=== PATIENT | male | born 1955 | race Caucasian/White ===

== ENCOUNTER 2016-12-25 11:09 | Inpatient (IN) | payer MEDICAID ==
[~2016-12-25] VITALS: Ht 182.9 cm; Wt 85.7 kg
[~2016-12-25 11:09] MED LIST: ACID1GRA2 PO; CLON-365 PO; FLUT1BLS INH; GABA600T2 PO; IPRA3AMP NPPB; METH10TA PO; METH40TA3 PO; NICO1PAT5 TD; PRED10TA14 PO; SULF1TAB24 PO; TIOT18CA INH; ciprofloxacin IV
[2016-12-25] MEDS ORDERED: SODIUM CHLORIDE 0.9% 1,000 ML IV ONE (11:44)
[2016-12-25] MEDS ORDERED: SODIUM CHLORIDE 0.9% 1,000ML IVBOLUS ONE (12:00)
[2016-12-25] MEDS ORDERED: CEFEPIME 2 GM in DEXTROSE 5% 100 ML IV ONE (12:00)
[2016-12-25] MEDS ORDERED: ACETAMINOPHEN 500 MG TABLET PO ONE (12:00)
[2016-12-25] MEDS ORDERED: SODIUM CHLORIDE FLUSH 10ML SYR IVF ONE (12:00)
[2016-12-25] MEDS ORDERED: VANCOMYCIN PER PHARMACY MC ONE (12:00)
[2016-12-25] MEDS ORDERED: VANCOMYCIN 1,600 MG in SODIUM CHLORIDE 0.9% 250 ML IV ONE (12:00)
[2016-12-25] MEDS ORDERED: ACETAMINOPHEN 500 MG TABLET ONE (12:05)
[2016-12-25 12:26] LABS: HEMOGLOBIN 12.7 g/dL (13.7-18.0)
[2016-12-25 12:36] LABS: BLOOD UREA NITROGEN 12 mg/dL (7-18)
[2016-12-25 12:39] LABS: ASPARTATE AMINO TRANSFERASE 10 U/L (15-37)
[2016-12-25] MEDS ORDERED: ENALAPRILAT 1.25 MG/ML, 2ML IVPush PRN (14:00)
[2016-12-25] MEDS ORDERED: POLYETHYLENE GLYCOL 17 GM PACKET PO PRN (14:00)
[2016-12-25] MEDS ORDERED: VANCOMYCIN PER PHARMACY MC PRN (14:00)
[2016-12-25] MEDS: CEFEPIME 2 GM in DEXTROSE 5% 100 ML IV SCH (14:00)
[2016-12-25] MEDS ORDERED: GUAIFENESIN/DM 200-20MG, 10ML UDC PO PRN (14:00)
[2016-12-25] MEDS ORDERED: DOCUSATE 100 MG CAPSULE PO PRN (14:00)
[2016-12-25] MEDS ORDERED: ALBUTEROL/IPRATROPIUM 2.5MG/0.5MG, 3 ML NPPB PRN (14:00)
[2016-12-25] MEDS ORDERED: ENOXAPARIN 40 MG/0.4 ML ONE (14:14)
[2016-12-25] MEDS ORDERED: methylPREDNISolone SOD SUCC 125 MG/2 ML ONE (14:14)
[2016-12-25] MEDS: methylPREDNISolone SOD SUCC 125 MG/2 ML IVPush SCH ×2 (14:19→22:33)
[2016-12-25] MEDS: ENOXAPARIN 40 MG/0.4 ML SQ SCH (14:19)
[2016-12-25 14:21] LABS: ABG COLLECTION SITE RIGHT RADIAL
[2016-12-25 14:22] LABS: COLLATERAL CIRCULATION TESTING NORMAL
[2016-12-25] MEDS: SODIUM CHLORIDE 0.9% 1,000 ML IV SCH (14:24)
[2016-12-25 15:36] VITALS: BP 121/56
[2016-12-25 16:00] VITALS: BP 121/56
[2016-12-25] MEDS ORDERED: PHARMACOKINETIC CONSULTATION MC ONE (16:30)
[2016-12-25] MEDS ORDERED: PHARMACOKINETIC MONITORING MC PRN (16:30)
[2016-12-25] MEDS: GABAPENTIN 300 MG CAPSULE PO SCH ×2 (16:39→21:38)
[2016-12-25 19:01] VITALS: BP 100/60
[2016-12-25] MEDS: ALBUTEROL/IPRATROPIUM 2.5MG/0.5MG, 3 ML NPPB SCH (20:10)
[2016-12-25 21:31] VITALS: BP 107/59
[2016-12-25] MEDS: METHADONE 40 MG TABLET.SOL PO SCH (21:37)
[2016-12-25] MEDS: ACETAMINOPHEN 325 MG TABLET PO PRN (21:38)
[2016-12-26 00:49] VITALS: BP 114/60
[2016-12-26] MEDS: CEFEPIME 2 GM in DEXTROSE 5% 100 ML IV SCH ×2 (00:54→15:31)
[2016-12-26] MEDS: SODIUM CHLORIDE 0.9% 1,000 ML IV SCH ×2 (04:31→20:23)
[2016-12-26] MEDS: ACETAMINOPHEN 325 MG TABLET PO PRN ×2 (05:38→20:24)
[2016-12-26 06:26] LABS: ASPARTATE AMINO TRANSFERASE 7 U/L (15-37); BLOOD UREA NITROGEN 14 mg/dL (7-18)
[2016-12-26] MEDS: ALBUTEROL/IPRATROPIUM 2.5MG/0.5MG, 3 ML NPPB SCH ×4 (06:51→20:00)
[2016-12-26 07:56] VITALS: BP 115/53
[2016-12-26] MEDS ORDERED: NICOTINE 21 MG/24 HR PATCH.TD24 TD SCH (09:00)
[2016-12-26] MEDS: GABAPENTIN 300 MG CAPSULE PO SCH ×3 (09:14→20:24)
[2016-12-26] MEDS: methylPREDNISolone SOD SUCC 125 MG/2 ML IVPush SCH ×3 (09:16→23:00)
[2016-12-26] MEDS ORDERED: VANCOMYCIN 1,600 MG in SODIUM CHLORIDE 0.9% 250 ML IV SCH (12:00)
[2016-12-26] MEDS: FLUTICASONE/VILANTEROL 200-25MCG/INH INH SCH (12:32)
[2016-12-26] MEDS: NICOTINE 14MG/24 HR PATCH.TD24 TD SCH (12:32)
[2016-12-26 12:59] VITALS: BP 111/54
[2016-12-26] MEDS: ENOXAPARIN 40 MG/0.4 ML SQ SCH (15:31)
[2016-12-26 20:13] VITALS: BP 124/54
[2016-12-26] MEDS: METHADONE 40 MG TABLET.SOL PO SCH (20:23)
[2016-12-26] MEDS ORDERED: METHADONE 40 MG TABLET.SOL PO SCH (21:00)
[2016-12-27] MEDS: ACETAMINOPHEN 325 MG TABLET PO PRN ×4 (01:50→20:38)
[2016-12-27 01:51] VITALS: BP 134/69
[2016-12-27] MEDS: CEFEPIME 2 GM in DEXTROSE 5% 100 ML IV SCH ×2 (03:54→15:31)
[2016-12-27] MEDS: VANCOMYCIN 1,600 MG in SODIUM CHLORIDE 0.9% 250 ML IV SCH (05:54)
[2016-12-27 05:56] LABS: HEMOGLOBIN 11.8 g/dL (13.7-18.0)
[2016-12-27 06:23] LABS: ASPARTATE AMINO TRANSFERASE 7 U/L (15-37); BLOOD UREA NITROGEN 25 mg/dL (7-18)
[2016-12-27] MEDS: ALBUTEROL/IPRATROPIUM 2.5MG/0.5MG, 3 ML NPPB SCH ×4 (06:30→20:00)
[2016-12-27 07:56] VITALS: BP 133/67
[2016-12-27] MEDS: FLUTICASONE/VILANTEROL 200-25MCG/INH INH SCH (08:27)
[2016-12-27] MEDS: methylPREDNISolone SOD SUCC 125 MG/2 ML IVPush SCH ×2 (08:27→15:31)
[2016-12-27] MEDS: GABAPENTIN 300 MG CAPSULE PO SCH ×3 (08:27→20:38)
[2016-12-27] MEDS: NICOTINE 14MG/24 HR PATCH.TD24 TD SCH (12:00)
[2016-12-27] MEDS: SODIUM CHLORIDE 0.9% 1,000 ML IV SCH (12:30)
[2016-12-27 12:59] VITALS: BP 118/48
[2016-12-27] MEDS: ENOXAPARIN 40 MG/0.4 ML SQ SCH (13:37)
[2016-12-27 19:32] VITALS: BP 130/70
[2016-12-27] MEDS: TRAZODONE 50MG TABLET PO PRN (20:38)
[2016-12-27] MEDS: METHADONE 40 MG TABLET.SOL PO SCH (20:38)
[2016-12-28] MEDS: methylPREDNISolone SOD SUCC 125 MG/2 ML IVPush SCH ×2 (00:07→08:15)
[2016-12-28] MEDS: VANCOMYCIN 1,600 MG in SODIUM CHLORIDE 0.9% 250 ML IV SCH ×2 (00:07→17:55)
[2016-12-28 02:33] VITALS: BP 151/78
[2016-12-28] MEDS: SODIUM CHLORIDE 0.9% 1,000 ML IV SCH ×2 (02:46→15:40)
[2016-12-28] MEDS: CEFEPIME 2 GM in DEXTROSE 5% 100 ML IV SCH (03:41)
[2016-12-28] MEDS: ALBUTEROL/IPRATROPIUM 2.5MG/0.5MG, 3 ML NPPB SCH ×4 (07:00→19:35)
[2016-12-28 08:11] VITALS: BP 148/80
[2016-12-28] MEDS: FLUTICASONE/VILANTEROL 200-25MCG/INH INH SCH (08:15)
[2016-12-28] MEDS: GABAPENTIN 300 MG CAPSULE PO SCH ×3 (08:15→21:20)
[2016-12-28] MEDS: NICOTINE 14MG/24 HR PATCH.TD24 TD SCH (08:15)
[2016-12-28 09:03] LABS: ASPARTATE AMINO TRANSFERASE 15 U/L (15-37); BLOOD UREA NITROGEN 27 mg/dL (7-18)
[2016-12-28 09:45] LABS: HEMOGLOBIN 13.1 g/dL (13.7-18.0)
[2016-12-28] MEDS: CEFEPIME 2 GM in SODIUM CHLORIDE 0.9% 100 ML IV SCH ×2 (10:46→23:41)
[2016-12-28] MEDS: IBUPROFEN 200 MG TABLET PO PRN (10:47)
[2016-12-28 13:13] VITALS: BP 124/65
[2016-12-28] MEDS ORDERED: KETOROLAC 30 MG/1 ML IVPush PRN (13:30)
[2016-12-28] MEDS: ENOXAPARIN 40 MG/0.4 ML SQ SCH (14:00)
[2016-12-28 18:41] VITALS: BP 121/69
[2016-12-28] MEDS: METHADONE 40 MG TABLET.SOL PO SCH (21:20)
[2016-12-29] MEDS: TRAZODONE 50MG TABLET PO PRN (00:47)
[2016-12-29 01:11] VITALS: BP 128/66
[2016-12-29 05:49] LABS: BLOOD UREA NITROGEN 32 mg/dL (7-18)
[2016-12-29 06:09] LABS: HEMOGLOBIN 11.5 g/dL (13.7-18.0)
[2016-12-29 06:54] VITALS: BP 126/70
[2016-12-29] MEDS: ALBUTEROL/IPRATROPIUM 2.5MG/0.5MG, 3 ML NPPB SCH ×3 (07:43→14:27)
[2016-12-29] MEDS: GABAPENTIN 300 MG CAPSULE PO SCH ×2 (08:34→17:16)
[2016-12-29] MEDS: IBUPROFEN 200 MG TABLET PO PRN (08:34)
[2016-12-29] MEDS: FLUTICASONE/VILANTEROL 200-25MCG/INH INH SCH (08:35)
[2016-12-29] MEDS: CEFEPIME 2 GM in SODIUM CHLORIDE 0.9% 100 ML IV SCH (11:19)
[2016-12-29] MEDS ORDERED: VANCOMYCIN 1,500 MG in SODIUM CHLORIDE 0.9% 250 ML IV SCH (12:00)
[2016-12-29 13:33] VITALS: BP 118/65
[2016-12-29] MEDS: ENOXAPARIN 40 MG/0.4 ML SQ SCH (14:00)
[2016-12-29] MEDS: NICOTINE 14MG/24 HR PATCH.TD24 TD SCH (14:23)
[2016-12-29] MEDS ORDERED: LINE600T37 PO (14:39)
[2016-12-29] MEDS ORDERED: PRED10TA PO (14:39)
== END 2016-12-29 19:37 | DRG 871 ==
LOC: ED 12:12 → EDIP 12:49 → 4WST 15:45
PROVIDERS: ADMIT Internal Medicine; ATTEND Internal Medicine
PROC: 0T9B70Z Drainage of Bladder with Drainage Device, Via Natural or Artificial Opening (ICD-10-PCS; principal; 2016-12-27)
DX: A41.9 Sepsis, unspecified organism (principal); J96.21 Acute and chronic respiratory failure with hypoxia; J15.212 Pneumonia due to Methicillin resistant Staphylococcus aureus; I50.32 Chronic diastolic (congestive) heart failure; J44.0 Chronic obstructive pulmonary disease with (acute) lower respiratory infection; J44.1 Chronic obstructive pulmonary disease with (acute) exacerbation; F11.20 Opioid dependence, uncomplicated; F41.9 Anxiety disorder, unspecified; G89.29 Other chronic pain; Z80.3 Family history of malignant neoplasm of breast; Z80.0 Family history of malignant neoplasm of digestive organs; Z87.891 Personal history of nicotine dependence; M54.9 Dorsalgia, unspecified; R65.20 Severe sepsis without septic shock; D75.82 Heparin induced thrombocytopenia (HIT); R13.10 Dysphagia, unspecified
CPT/HCPCS: 36415; 36600; 71010; 74230; 80048; 80053; 80202; 81003; 82803; 83605; 84145; 85025; 87040; 87070; 87077; 87186; 87205; 93005; 94640; 96365; 96366; 96368; J1650; J1885; J3370; J7620; J2930; J7030; J7050; J7512

== ENCOUNTER 2017-06-04 07:55 | Emergency (ER) | payer MEDICAID ==
[~2017-06-04] VITALS: Ht 182.9 cm; Wt 70.9 kg
[~2017-06-04 07:55] MED LIST changes: -ACID1GRA2 PO; +ACID1GRA3 PO; +LINE600T37 PO; +NICO1PAT16 TD; -NICO1PAT5 TD; +PRED10TA PO
[2017-06-04 07:59] VITALS: BP 117/84
[2017-06-04] MEDS ORDERED: SODIUM CHLORIDE 0.9% 1,000 ML IV ONE (08:19)
[2017-06-04] MEDS ORDERED: SODIUM CHLORIDE FLUSH 10ML SYR IVF ONE (08:30)
[2017-06-04] MEDS ORDERED: ONDANSETRON 2MG/ML, 2ML IVPush ONE (08:30)
[2017-06-04 08:38] LABS: HEMATOCRIT 41.7 % (39.2-51.8); HEMOGLOBIN 13.5 g/dL (13.7-18.0); WHITE BLOOD COUNT 6.5 x10^3/uL (3.4-10)
[2017-06-04 08:46] LABS: ASPARTATE AMINO TRANSFERASE 17 U/L (15-37); BLOOD UREA NITROGEN 10 mg/dL (7-18)
[2017-06-04] MEDS ORDERED: MAGNESIUM CITRATE 300ML ORAL SOL PO ONE (09:30)
[2017-06-04] MEDS ORDERED: MAGNESIUM CITRATE 300ML ORAL SOL ONE (09:32)
== END 2017-06-04 09:41 | disposition home or self-care (01) ==
LOC: ED 08:29
DX: K59.00 Constipation, unspecified (principal)
CPT/HCPCS: 36415; 74020; 80053; 83690; 85025; 99285

== ENCOUNTER 2017-06-29 11:22 | Inpatient (IN) | payer MEDICAID ==
[~2017-06-29] VITALS: Ht 180.3 cm; Wt 68.7 kg
[~2017-06-29 11:22] MED LIST changes: +NICO-487 TD; -NICO1PAT16 TD
[2017-06-29] MEDS ORDERED: LORazepam 2 MG/ML, 1ML ONE ×2 (11:38→15:12)
[2017-06-29] MEDS ORDERED: methylPREDNISolone SOD SUCC 125 MG/2 ML ONE (11:38)
[2017-06-29] MEDS ORDERED: LORazepam 2 MG/ML, 1ML IVPush ONE ×2 (12:00→15:30)
[2017-06-29] MEDS ORDERED: ASPIRIN 81 MG TABLET CHEW PO ONE (12:00)
[2017-06-29] MEDS ORDERED: methylPREDNISolone SOD SUCC 125 MG/2 ML IVP ONE (12:00)
[2017-06-29 12:26] LABS: HEMATOCRIT 40.6 % (39.2-51.8); HEMOGLOBIN 13.7 g/dL (13.7-18.0); WHITE BLOOD COUNT 14.7 x10^3/uL (3.4-10)
[2017-06-29 12:39] LABS: BLOOD UREA NITROGEN 17 mg/dL (7-18)
[2017-06-29 12:40] LABS: ASPARTATE AMINO TRANSFERASE 25 U/L (15-37)
[2017-06-29 12:46] LABS: IS PT STATUS REG ER OR PRE ER? YES
[2017-06-29] MEDS ORDERED: AZITHROMYCIN 500 MG in SODIUM CHLORIDE 0.9% 250 ML IV ONE (13:00)
[2017-06-29] MEDS ORDERED: CEFTRIAXONE PMX 1GM/50ML 50 ML IVPB ONE (13:00)
[2017-06-29] MEDS ORDERED: SODIUM CHLORIDE 0.9% 1,000ML IVBOLUS ONE ×2 (13:30→14:00)
[2017-06-29] MEDS ORDERED: CEFTRIAXONE PMX 1GM/50ML 50 ML ONE (13:47)
[2017-06-29] MEDS ORDERED: ASPIRIN 81 MG TABLET CHEW ONE (14:55)
[2017-06-29] MEDS ORDERED: GABA300S PO (15:00)
[2017-06-29] MEDS ORDERED: QUET50TA5 PO (15:02)
[2017-06-29] MEDS ORDERED: BUDE10.2 INH (15:02)
[2017-06-29] MEDS ORDERED: SERT25TA PO (15:03)
[2017-06-29] MEDS ORDERED: OMNIPAQUE 350 MG/ML, 100ML BOTTLE ONE (17:54)
[2017-06-29] MEDS ORDERED: ONDANSETRON ODT 4 MG PO PRN (19:00)
[2017-06-29] MEDS ORDERED: ACETAMINOPHEN 325 MG TABLET PO PRN (19:00)
[2017-06-29] MEDS ORDERED: IPRATROPIUM 0.5 MG/2.5 ML INHA NPPB PRN (20:00)
[2017-06-29] MEDS ORDERED: ALBUTEROL/IPRATROPIUM 2.5MG/0.5MG, 3 ML NPPB PRN (20:00)
[2017-06-29 20:12] VITALS: BP 121/67
[2017-06-29] MEDS: QUETIAPINE 25MG TABLET PO SCH ×2 (21:00→21:51)
[2017-06-29] MEDS: FLUTICASONE/VILANTEROL 200-25MCG/INH INH SCH (21:00)
[2017-06-29] MEDS: SODIUM CHLORIDE 0.9% 1,000 ML IV SCH (21:21)
[2017-06-29] MEDS: TEMAZEPAM 15 MG CAPSULE PO PRN (21:22)
[2017-06-29] MEDS: LORazepam 1MG TABLET PO PRN (21:22)
[2017-06-29] MEDS: ENOXAPARIN 40 MG/0.4 ML SQ SCH (21:22)
[2017-06-29] MEDS: GABAPENTIN 400 MG CAPSULE PO SCH (21:24)
[2017-06-30] MEDS: CEFTRIAXONE PMX 1GM/50ML 50 ML IV SCH ×2 (00:56→13:08)
[2017-06-30 02:00] VITALS: BP 101/49
[2017-06-30] MEDS: LORazepam 1MG TABLET PO PRN ×3 (04:29→17:12)
[2017-06-30 05:55] LABS: HEMATOCRIT 35.7 % (39.2-51.8); HEMOGLOBIN 12.1 g/dL (13.7-18.0); WHITE BLOOD COUNT 11.2 x10^3/uL (3.4-10)
[2017-06-30] MEDS ORDERED: METHADONE 40 MG TABLET.SOL ONE (06:19)
[2017-06-30 06:28] LABS: BLOOD UREA NITROGEN 20 mg/dL (7-18)
[2017-06-30] MEDS: METHADONE 40 MG TABLET.SOL PO SCH ×2 (06:30→09:00)
[2017-06-30] MEDS: SODIUM CHLORIDE 0.9% 1,000 ML IV SCH ×2 (06:33→16:09)
[2017-06-30] MEDS: ALBUTEROL/IPRATROPIUM 2.5MG/0.5MG, 3 ML NPPB SCH ×4 (07:15→20:00)
[2017-06-30 07:57] VITALS: BP 126/66
[2017-06-30] MEDS ORDERED: methylPREDNISolone SOD SUCC 40 MG/ML IV SCH (09:00)
[2017-06-30] MEDS ORDERED: METHADONE 40 MG TABLET.SOL PO SCH (09:00)
[2017-06-30] MEDS: FLUTICASONE/VILANTEROL 200-25MCG/INH INH SCH ×2 (09:00→22:16)
[2017-06-30] MEDS ORDERED: METHADONE 10 MG TABLET PO ONE (09:30)
[2017-06-30] MEDS: GABAPENTIN 400 MG CAPSULE PO SCH ×3 (09:34→21:42)
[2017-06-30 12:00] VITALS: BP 124/64
[2017-06-30] MEDS: AZITHROMYCIN 500 MG in SODIUM CHLORIDE 0.9% 250 ML IV SCH (13:40)
[2017-06-30 19:45] VITALS: BP 130/65
[2017-06-30] MEDS: GUAIFENESIN ER 600 MG TABLET PO SCH (21:42)
[2017-06-30] MEDS: QUETIAPINE 25MG TABLET PO SCH (21:42)
[2017-06-30] MEDS: ENOXAPARIN 40 MG/0.4 ML SQ SCH (21:42)
[2017-07-01] MEDS: SODIUM CHLORIDE 0.9% 1,000 ML IV SCH (00:16)
[2017-07-01] MEDS: CEFTRIAXONE PMX 1GM/50ML 50 ML IV SCH ×2 (01:04→12:37)
[2017-07-01 02:21] VITALS: BP 114/67
[2017-07-01] MEDS: LORazepam 1MG TABLET PO PRN ×4 (04:33→22:17)
[2017-07-01 06:02] LABS: HEMATOCRIT 37.2 % (39.2-51.8); HEMOGLOBIN 12.3 g/dL (13.7-18.0)
[2017-07-01 06:22] LABS: BLOOD UREA NITROGEN 17 mg/dL (7-18)
[2017-07-01] MEDS: METHADONE 40 MG TABLET.SOL PO SCH (06:24)
[2017-07-01 06:33] LABS: IS PT STATUS REG ER OR PRE ER? NO
[2017-07-01] MEDS: ALBUTEROL/IPRATROPIUM 2.5MG/0.5MG, 3 ML NPPB SCH ×4 (07:10→19:35)
[2017-07-01 07:57] VITALS: BP 142/78
[2017-07-01] MEDS: FLUTICASONE/VILANTEROL 200-25MCG/INH INH SCH ×2 (09:15→21:22)
[2017-07-01] MEDS: GUAIFENESIN ER 600 MG TABLET PO SCH ×2 (09:16→21:22)
[2017-07-01] MEDS: GABAPENTIN 400 MG CAPSULE PO SCH ×3 (09:16→21:23)
[2017-07-01 10:10] LABS: IS PT STATUS REG ER OR PRE ER? NO
[2017-07-01] MEDS: AZITHROMYCIN 500 MG in SODIUM CHLORIDE 0.9% 250 ML IV SCH (13:11)
[2017-07-01 13:14] VITALS: BP 123/67
[2017-07-01 20:00] VITALS: BP 122/70
[2017-07-01] MEDS: ENOXAPARIN 40 MG/0.4 ML SQ SCH (21:23)
[2017-07-01] MEDS: QUETIAPINE 25MG TABLET PO SCH (21:23)
[2017-07-02] MEDS: CEFTRIAXONE PMX 1GM/50ML 50 ML IV SCH ×2 (00:53→12:48)
[2017-07-02 02:00] VITALS: BP 118/74
[2017-07-02] MEDS: TEMAZEPAM 15 MG CAPSULE PO PRN ×2 (02:09→21:53)
[2017-07-02] MEDS: LORazepam 1MG TABLET PO PRN ×3 (04:42→17:49)
[2017-07-02] MEDS: METHADONE 40 MG TABLET.SOL PO SCH (06:01)
[2017-07-02] MEDS: ALBUTEROL/IPRATROPIUM 2.5MG/0.5MG, 3 ML NPPB SCH ×4 (07:02→19:57)
[2017-07-02 07:43] LABS: HEMATOCRIT 36.9 % (39.2-51.8); HEMOGLOBIN 12.2 g/dL (13.7-18.0); WHITE BLOOD COUNT 5.4 x10^3/uL (3.4-10)
[2017-07-02 07:44] LABS: BLOOD UREA NITROGEN 13 mg/dL (7-18)
[2017-07-02 09:19] VITALS: BP 99/60
[2017-07-02] MEDS: GABAPENTIN 400 MG CAPSULE PO SCH ×3 (09:56→20:26)
[2017-07-02] MEDS: FLUTICASONE/VILANTEROL 200-25MCG/INH INH SCH ×2 (09:57→20:25)
[2017-07-02] MEDS: GUAIFENESIN ER 600 MG TABLET PO SCH ×2 (09:57→20:26)
[2017-07-02] MEDS: AZITHROMYCIN 500 MG in SODIUM CHLORIDE 0.9% 250 ML IV SCH (12:48)
[2017-07-02 12:58] VITALS: BP 103/61
[2017-07-02] MEDS: PIPERACILLIN/TAZO/PMX 3.375GM 50 ML IV SCH (20:25)
[2017-07-02] MEDS: QUETIAPINE 25MG TABLET PO SCH (20:26)
[2017-07-02] MEDS: ENOXAPARIN 40 MG/0.4 ML SQ SCH (20:26)
[2017-07-02 20:31] VITALS: BP 115/72
[2017-07-03 02:00] VITALS: BP 133/76
[2017-07-03] MEDS: PIPERACILLIN/TAZO/PMX 3.375GM 50 ML IV SCH ×4 (02:29→22:29)
[2017-07-03] MEDS: LORazepam 1MG TABLET PO PRN ×4 (02:29→22:29)
[2017-07-03] MEDS: METHADONE 40 MG TABLET.SOL PO SCH (05:39)
[2017-07-03] MEDS: ALBUTEROL/IPRATROPIUM 2.5MG/0.5MG, 3 ML NPPB SCH ×4 (06:47→19:30)
[2017-07-03 09:30] VITALS: BP 117/62
[2017-07-03] MEDS: GABAPENTIN 400 MG CAPSULE PO SCH ×3 (10:00→20:25)
[2017-07-03] MEDS: FLUTICASONE/VILANTEROL 200-25MCG/INH INH SCH (10:00)
[2017-07-03] MEDS: GUAIFENESIN ER 600 MG TABLET PO SCH ×2 (10:00→20:26)
[2017-07-03 12:01] VITALS: BP 106/55
[2017-07-03] MEDS ORDERED: POLYETHYLENE GLYCOL 17 GM PACKET PO PRN (14:30)
[2017-07-03] MEDS: SENNA/DOCUSATE TABLET PO SCH ×2 (15:14→20:25)
[2017-07-03] MEDS ORDERED: LORazepam 1MG TABLET ONE (16:31)
[2017-07-03] MEDS ORDERED: LORazepam 1MG TABLET PO PRN (19:00)
[2017-07-03] MEDS: QUETIAPINE 25MG TABLET PO SCH (20:26)
[2017-07-03] MEDS: ENOXAPARIN 40 MG/0.4 ML SQ SCH (20:26)
[2017-07-03] MEDS: TEMAZEPAM 15 MG CAPSULE PO PRN (20:26)
[2017-07-03 20:59] VITALS: BP 103/55
[2017-07-04 01:40] VITALS: BP 104/59
[2017-07-04] MEDS: LORazepam 1MG TABLET PO PRN ×4 (02:52→21:47)
[2017-07-04] MEDS: PIPERACILLIN/TAZO/PMX 3.375GM 50 ML IV SCH ×4 (04:40→23:11)
[2017-07-04] MEDS: ALBUTEROL/IPRATROPIUM 2.5MG/0.5MG, 3 ML NPPB SCH ×4 (06:40→19:26)
[2017-07-04 07:05] VITALS: BP 122/75
[2017-07-04] MEDS: GABAPENTIN 400 MG CAPSULE PO SCH ×3 (08:23→20:01)
[2017-07-04] MEDS: SENNA/DOCUSATE TABLET PO SCH ×2 (08:23→20:02)
[2017-07-04] MEDS: GUAIFENESIN ER 600 MG TABLET PO SCH ×2 (08:23→20:01)
[2017-07-04] MEDS: METHADONE 40 MG TABLET.SOL PO SCH (08:23)
[2017-07-04] MEDS: FLUTICASONE/VILANTEROL 200-25MCG/INH INH SCH (09:00)
[2017-07-04 14:13] VITALS: BP 120/77
[2017-07-04 18:42] VITALS: BP 138/84
[2017-07-04] MEDS: QUETIAPINE 25MG TABLET PO SCH (20:01)
[2017-07-04] MEDS: ENOXAPARIN 40 MG/0.4 ML SQ SCH (20:01)
[2017-07-04] MEDS: TEMAZEPAM 15 MG CAPSULE PO PRN (23:16)
[2017-07-05 01:46] VITALS: BP 105/63
[2017-07-05] MEDS: LORazepam 1MG TABLET PO PRN ×3 (04:43→17:32)
[2017-07-05] MEDS: PIPERACILLIN/TAZO/PMX 3.375GM 50 ML IV SCH ×4 (04:44→22:54)
[2017-07-05 06:00] LABS: HEMATOCRIT 38.2 % (39.2-51.8); HEMOGLOBIN 12.6 g/dL (13.7-18.0); WHITE BLOOD COUNT 7.5 x10^3/uL (3.4-10)
[2017-07-05 06:03] LABS: BLOOD UREA NITROGEN 19 mg/dL (7-18)
[2017-07-05 06:53] VITALS: BP 123/82
[2017-07-05] MEDS: ALBUTEROL/IPRATROPIUM 2.5MG/0.5MG, 3 ML NPPB SCH ×4 (08:05→19:50)
[2017-07-05] MEDS: METHADONE 40 MG TABLET.SOL PO SCH (08:47)
[2017-07-05] MEDS: GABAPENTIN 400 MG CAPSULE PO SCH ×3 (08:48→20:08)
[2017-07-05] MEDS: SENNA/DOCUSATE TABLET PO SCH ×2 (08:48→20:08)
[2017-07-05] MEDS: GUAIFENESIN ER 600 MG TABLET PO SCH ×2 (08:48→20:08)
[2017-07-05] MEDS: FLUTICASONE/VILANTEROL 200-25MCG/INH INH SCH (08:51)
[2017-07-05 12:17] VITALS: BP 150/67
[2017-07-05 20:00] VITALS: BP 127/67
[2017-07-05] MEDS: ENOXAPARIN 40 MG/0.4 ML SQ SCH (20:09)
[2017-07-05] MEDS: QUETIAPINE 25MG TABLET PO SCH (20:09)
[2017-07-05] MEDS: TEMAZEPAM 15 MG CAPSULE PO PRN (22:55)
[2017-07-06 01:41] VITALS: BP 92/61
[2017-07-06] MEDS: LORazepam 1MG TABLET PO PRN ×3 (02:49→16:57)
[2017-07-06] MEDS: PIPERACILLIN/TAZO/PMX 3.375GM 50 ML IV SCH ×2 (05:08→13:13)
[2017-07-06] MEDS: ALBUTEROL/IPRATROPIUM 2.5MG/0.5MG, 3 ML NPPB SCH ×3 (07:00→14:08)
[2017-07-06] MEDS: GUAIFENESIN ER 600 MG TABLET PO SCH (07:52)
[2017-07-06] MEDS: GABAPENTIN 400 MG CAPSULE PO SCH (07:52)
[2017-07-06] MEDS: SENNA/DOCUSATE TABLET PO SCH (07:52)
[2017-07-06] MEDS: FLUTICASONE/VILANTEROL 200-25MCG/INH INH SCH (07:52)
[2017-07-06] MEDS: METHADONE 40 MG TABLET.SOL PO SCH (08:00)
[2017-07-06 08:21] VITALS: BP 115/69
[2017-07-06] MEDS ORDERED: LEVO750T26 PO (14:22)
[2017-07-06] MEDS ORDERED: GUAI600T31 PO (14:22)
[2017-07-06] MEDS ORDERED: PRED5TAB PO (14:22)
[2017-07-06] MEDS ORDERED: FLU VACC QS2017-18 (36MOS+) UP/PF 0.5 ML IM-VACC ONE (17:00)
== END 2017-07-06 17:09 | DRG 871 ==
LOC: ED 11:30 → EDIP 16:41 → 4WST 18:42
PROVIDERS: ADMIT Family Medicine; ATTEND Family Medicine
DX: A41.9 Sepsis, unspecified organism (principal); E43 Unspecified severe protein-calorie malnutrition; J96.21 Acute and chronic respiratory failure with hypoxia; J15.1 Pneumonia due to Pseudomonas; I50.32 Chronic diastolic (congestive) heart failure; J44.0 Chronic obstructive pulmonary disease with (acute) lower respiratory infection; R13.10 Dysphagia, unspecified; Z99.81 Dependence on supplemental oxygen; F11.20 Opioid dependence, uncomplicated; M48.54XA Collapsed vertebra, not elsewhere classified, thoracic region, initial encounter for fracture; F33.9 Major depressive disorder, recurrent, unspecified; J44.1 Chronic obstructive pulmonary disease with (acute) exacerbation; T17.990A Other foreign object in respiratory tract, part unspecified in causing asphyxiation, initial encounter; F17.210 Nicotine dependence, cigarettes, uncomplicated; F41.1 Generalized anxiety disorder; R65.20 Severe sepsis without septic shock; Z79.82 Long term (current) use of aspirin; Z80.3 Family history of malignant neoplasm of breast; Z86.14 Personal history of Methicillin resistant Staphylococcus aureus infection; Z87.01 Personal history of pneumonia (recurrent)
CPT/HCPCS: 36415; 71020; 71275; 80048; 80053; 83605; 83735; 84145; 84484; 85025; 85379; 87040; 87070; 87077; 87186; 87205; 93005; 94640; 96374; 96375; J0456; J0696; J1650; J2543; J7620; Q9967; J2060; J2920; J2930; J7030; J7050; J7512

== ENCOUNTER 2017-10-11 03:58 | Inpatient (IN) | payer MEDICAID ==
[2017-10-11] VITALS (8 sets, daily range): BP systolic 109–148; BP diastolic 68–80
[~2017-10-11] VITALS: Ht 167.6 cm; Wt 83.2 kg
[~2017-10-11 03:58] MED LIST changes: +BUDE10.2 INH; +GABA300S PO; +GUAI600T31 PO; +LEVO750T26 PO; +PRED5TAB PO; +QUET50TA5 PO; +SERT25TA PO
[2017-10-11] MEDS ORDERED: ALBUTEROL/IPRATROPIUM 2.5MG/0.5MG, 3 ML ONE ×4 (04:18→17:57)
[2017-10-11] MEDS ORDERED: ALBUTEROL/IPRATROPIUM 2.5MG/0.5MG, 3 ML NPPB ONE (04:30)
[2017-10-11] MEDS ORDERED: ALBUTEROL SULFATE 2.5 MG/3 ML NPPB ONE ×2 (04:30→05:30)
[2017-10-11] MEDS ORDERED: MORPHINE SULFATE 4 MG/ML, 1ML IVPush ONE (04:30)
[2017-10-11] MEDS ORDERED: morphine SULFATE 10 MG/ML, 1ML ONE (05:17)
[2017-10-11] MEDS ORDERED: methylPREDNISolone SOD SUCC 125 MG/2 ML ONE (05:17)
[2017-10-11] MEDS ORDERED: SODIUM CHLORIDE 0.9% 1,000ML IVBOLUS ONE (05:30)
[2017-10-11] MEDS ORDERED: methylPREDNISolone SOD SUCC 125 MG/2 ML IVP ONE (05:30)
[2017-10-11] MEDS ORDERED: SODIUM CHLORIDE FLUSH 10ML SYR IVF ONE (05:30)
[2017-10-11 05:44] LABS: BASOPHILS # (AUTO) 0.02 x10^3/uL (0-0.1); BASOPHILS % (AUTO) 0 % (0-1); EOSINOPHILS # (AUTO) 0.21 x10^3/uL (0-0.4); EOSINOPHILS % (AUTO) 2 % (1-7); LYMPHOCYTES # (AUTO) 1.58 x10^3/uL (1-3.4); LYMPHOCYTES % (AUTO) 12 % (22-44); MD NO; MEAN CORPUSCULAR HEMOGLOBIN 29.7 pg (27.5-34.5); MEAN CORPUSCULAR VOLUME 90.1 fL (81-97); MEAN PLATELET VOLUME 6.5 fL (7.4-10.4); MONOCYTES # (AUTO) 0.82 x10^3/uL (0.2-0.8); MONOCYTES % (AUTO) 6 % (2-9); NEUTROPHILS # (AUTO) 10.29 x10^3/uL (1.8-6.8); NEUTROPHILS % (AUTO) 80 % (42-75); PLATELET COUNT 195 x10^3/uL (130-400); RED BLOOD COUNT 4.54 x10^6/uL (4.38-5.82); RED CELL DISTRIBUTION WIDTH 15.3 % (9.4-14.8)
[2017-10-11 05:54] LABS: INTERNATIONAL NORMALIZED RATIO 0.96 (0.93-1.1)
[2017-10-11 05:57] LABS: ALBUMIN 3.2 g/dL (3.4-5.0); ANION GAP 8 mmol/L (5-15); CALCIUM 8.3 mg/dL (8.5-10.1); CHLORIDE 102 mmol/L (98-107)
[2017-10-11 06:03] LABS: ALANINE AMINOTRANSFERASE 19 U/L (12-78); ALKALINE PHOSPHATASE 70 U/L (45-117); BILIRUBIN,TOTAL 0.5 mg/dL (0.2-1.0); CREATINE KINASE, TOTAL 46 U/L (39-308); CREATININE 0.84 mg/dL (0.7-1.3); TOTAL PROTEIN 6.9 g/dL (6.4-8.2); TROPONIN I < 0.015 ng/mL (0.000-0.045)
[2017-10-11] MEDS ORDERED: MORPHINE SULFATE 4 MG/ML, 1ML IVPush PRN (07:00)
[2017-10-11] MEDS ORDERED: METH-356 PO (07:17)
[2017-10-11] MEDS ORDERED: ALPR-475 PO (07:18)
[2017-10-11] MEDS ORDERED: PRED10TA14 PO (07:20)
[2017-10-11] MEDS ORDERED: FENTANYL PF 100 MCG/2ML ONE ×5 (07:32→17:56)
[2017-10-11] MEDS: FENTANYL PF 100 MCG/2ML IVPush PRN ×3 (07:34→09:12)
[2017-10-11] MEDS ORDERED: LORazepam 2 MG/ML, 1ML ONE (09:22)
[2017-10-11] MEDS ORDERED: ONDANSETRON 2MG/ML, 2ML IVPush PRN ×2 (09:30→18:00)
[2017-10-11] MEDS ORDERED: ACETAMINOPHEN 325 MG TABLET PO PRN ×2 (09:30→18:00)
[2017-10-11] MEDS: GUAIFENESIN ER 600 MG TABLET PO SCH ×2 (09:30→21:00)
[2017-10-11] MEDS ORDERED: LORazepam 2 MG/ML, 1ML IVPush ONE (09:30)
[2017-10-11] MEDS: POLYETHYLENE GLYCOL 17 GM PACKET PO SCH (09:30)
[2017-10-11] MEDS ORDERED: hydrALAzine 20 MG/ML, 1ML IVPush PRN (09:30)
[2017-10-11 09:57] LABS: FREE T4 (FREE THYROXINE) 1.11 ng/dL (0.76-1.46); THYROID STIMULATING HORMONE 9.18 mIU/L (0.358-3.740)
[2017-10-11] MEDS: morphine SULFATE 10 MG/ML, 1ML IVPush PRN ×2 (11:19→22:00)
[2017-10-11] MEDS ORDERED: ALBUTEROL/IPRATROPIUM 2.5MG/0.5MG, 3 ML NEB ONE (11:45)
[2017-10-11] MEDS: PANTOPRAZOLE 40 MG IV IVPush SCH (11:50)
[2017-10-11] MEDS: LEVOFLOXACIN/PMX 500MG/100ML 100 ML IV SCH (11:50)
[2017-10-11] MEDS: SODIUM CHLORIDE 0.9% 1,000 ML IV SCH (11:50)
[2017-10-11] MEDS: methylPREDNISolone SOD SUCC 125 MG/2 ML IVPush SCH ×2 (11:50→18:00)
[2017-10-11] MEDS: NICOTINE 14MG/24 HR PATCH.TD24 TD SCH (12:02)
[2017-10-11] MEDS ORDERED: ALBUTEROL/IPRATROPIUM 2.5MG/0.5MG, 3 ML NPPB PRN (12:30)
[2017-10-11] MEDS: METHADONE 40 MG TABLET.SOL PO SCH (13:28)
[2017-10-11] MEDS: ALBUTEROL/IPRATROPIUM 2.5MG/0.5MG, 3 ML NPPB SCH ×2 (15:00→19:23)
[2017-10-11] MEDS ORDERED: KETAMINE 10 MG/ML, 20ML ONE (17:11)
[2017-10-11] MEDS ORDERED: SUCCINYLCHOLINE 20 MG/ML, 10ML ONE (17:13)
[2017-10-11] MEDS ORDERED: PROPOFOL 10 MG/ML, 20ML ONE (17:13)
[2017-10-11] MEDS ORDERED: CEFAZOLIN 1,000 MG ONE (17:13)
[2017-10-11] MEDS: FENTANYL PF 100 MCG/2ML IV PRN ×2 (17:58→18:05)
[2017-10-11] MEDS ORDERED: OXYcodone 5 MG/5 ML ORAL.SOL UDC PO PRN (18:00)
[2017-10-11] MEDS ORDERED: HYDROcodone/APAP 7.5-325MG/15ML UDC PO PRN (18:00)
[2017-10-11] MEDS ORDERED: HYDROmorphone 1 MG/ML, 1ML IV PRN (18:00)
[2017-10-11] MEDS ORDERED: FUROSEMIDE 20 MG/2 ML ONE (18:14)
[2017-10-11] MEDS ORDERED: HALOPERIDOL 5 MG/ML ONE ×2 (18:19→18:29)
[2017-10-11] MEDS ORDERED: EPINEPHRINE 1 MG/ML, 1ML ONE (18:24)
[2017-10-11] MEDS ORDERED: BUPIVACAINE/PF 0.25% ONE (18:24)
[2017-10-11] MEDS ORDERED: FUROSEMIDE 20 MG/2 ML IV ONE (18:30)
[2017-10-11 19:05] LABS: O2 FLOW 10 L/min
[2017-10-11] MEDS ORDERED: HALOPERIDOL 5 MG/ML IV ONE (19:30)
[2017-10-12] VITALS (7 sets, daily range): BP systolic 123–155; BP diastolic 68–96
[2017-10-12] MEDS: morphine SULFATE 10 MG/ML, 1ML IVPush PRN ×7 (00:40→21:44)
[2017-10-12] MEDS: methylPREDNISolone SOD SUCC 125 MG/2 ML IVPush SCH ×4 (00:52→18:14)
[2017-10-12] MEDS: ALBUTEROL/IPRATROPIUM 2.5MG/0.5MG, 3 ML NPPB SCH ×4 (03:00→21:05)
[2017-10-12] MEDS: CEFAZOLIN PMX 1GM/50ML 50 ML IV SCH ×3 (03:50→20:05)
[2017-10-12 05:23] LABS: BASOPHILS # (AUTO) 0.02 x10^3/uL (0-0.1); BASOPHILS % (AUTO) 0 % (0-1); EOSINOPHILS % (AUTO) 0 % (1-7); LYMPHOCYTES # (AUTO) 0.62 x10^3/uL (1-3.4); LYMPHOCYTES % (AUTO) 4 % (22-44); MD NO; MEAN CORPUSCULAR HEMOGLOBIN 29.7 pg (27.5-34.5); MEAN CORPUSCULAR HGB CONC 33.3 g/dL (33.2-36.2); MEAN CORPUSCULAR VOLUME 89.2 fL (81-97); MEAN PLATELET VOLUME 7.1 fL (7.4-10.4); MONOCYTES # (AUTO) 0.35 x10^3/uL (0.2-0.8); MONOCYTES % (AUTO) 2 % (2-9); NEUTROPHILS # (AUTO) 13.44 x10^3/uL (1.8-6.8); NEUTROPHILS % (AUTO) 93 % (42-75); PLATELET COUNT 190 x10^3/uL (130-400); RED BLOOD COUNT 4.45 x10^6/uL (4.38-5.82); RED CELL DISTRIBUTION WIDTH 15.2 % (9.4-14.8)
[2017-10-12 05:26] LABS: ANION GAP 9 mmol/L (5-15); CALCIUM 8.8 mg/dL (8.5-10.1); CHLORIDE 103 mmol/L (98-107)
[2017-10-12 05:29] LABS: ALANINE AMINOTRANSFERASE 22 U/L (12-78); ALKALINE PHOSPHATASE 68 U/L (45-117); BILIRUBIN,TOTAL 0.7 mg/dL (0.2-1.0); CREATININE 0.95 mg/dL (0.7-1.3); TOTAL PROTEIN 6.8 g/dL (6.4-8.2)
[2017-10-12] MEDS: ENOXAPARIN 40 MG/0.4 ML SQ SCH (06:18)
[2017-10-12] MEDS: PANTOPRAZOLE 40 MG IV IVPush SCH (08:14)
[2017-10-12] MEDS: GUAIFENESIN ER 600 MG TABLET PO SCH ×2 (08:14→21:45)
[2017-10-12] MEDS: HYDROcodone/APAP 5/325 TABLET PO PRN ×2 (08:14→21:45)
[2017-10-12] MEDS: POLYETHYLENE GLYCOL 17 GM PACKET PO SCH (08:15)
[2017-10-12] MEDS: METHADONE 40 MG TABLET.SOL PO SCH (08:15)
[2017-10-12] MEDS: SODIUM CHLORIDE 0.9% 1,000 ML IV SCH ×2 (08:25→08:26)
[2017-10-12] MEDS ORDERED: METHADONE 40 MG TABLET.SOL PO SCH (09:00)
[2017-10-12] MEDS: NICOTINE 14MG/24 HR PATCH.TD24 TD SCH (11:46)
[2017-10-12] MEDS: LEVOFLOXACIN/PMX 500MG/100ML 100 ML IV SCH (13:18)
[2017-10-12 14:44] LABS: TROPONIN I < 0.015 ng/mL (0.000-0.045)
[2017-10-13] MEDS: morphine SULFATE 10 MG/ML, 1ML IVPush PRN ×6 (01:30→23:35)
[2017-10-13] MEDS: HYDROcodone/APAP 5/325 TABLET PO PRN ×4 (01:30→20:12)
[2017-10-13] MEDS: methylPREDNISolone SOD SUCC 125 MG/2 ML IVPush SCH ×6 (01:31→23:44)
[2017-10-13 01:46] VITALS: BP 141/79
[2017-10-13] MEDS: ALBUTEROL/IPRATROPIUM 2.5MG/0.5MG, 3 ML NPPB SCH ×4 (03:00→19:20)
[2017-10-13] MEDS: ENOXAPARIN 40 MG/0.4 ML SQ SCH (05:09)
[2017-10-13 05:31] LABS: BASOPHILS % (AUTO) 0 % (0-1); EOSINOPHILS % (AUTO) 0 % (1-7); LYMPHOCYTES # (AUTO) 0.85 x10^3/uL (1-3.4); LYMPHOCYTES % (AUTO) 7 % (22-44); MD NO; MEAN CORPUSCULAR HEMOGLOBIN 29.8 pg (27.5-34.5); MEAN CORPUSCULAR HGB CONC 33.5 g/dL (33.2-36.2); MEAN CORPUSCULAR VOLUME 88.9 fL (81-97); MONOCYTES # (AUTO) 0.59 x10^3/uL (0.2-0.8); MONOCYTES % (AUTO) 5 % (2-9); NEUTROPHILS # (AUTO) 11.17 x10^3/uL (1.8-6.8); NEUTROPHILS % (AUTO) 89 % (42-75); PLATELET COUNT 189 x10^3/uL (130-400); RED BLOOD COUNT 4.22 x10^6/uL (4.38-5.82); RED CELL DISTRIBUTION WIDTH 15.2 % (9.4-14.8)
[2017-10-13 05:49] LABS: ANION GAP 6 mmol/L (5-15); CALCIUM 8.4 mg/dL (8.5-10.1); CHLORIDE 102 mmol/L (98-107); CREATININE 0.79 mg/dL (0.7-1.3)
[2017-10-13 08:45] VITALS: BP 137/82
[2017-10-13] MEDS: POLYETHYLENE GLYCOL 17 GM PACKET PO SCH (09:00)
[2017-10-13] MEDS: GUAIFENESIN ER 600 MG TABLET PO SCH ×2 (09:21→20:12)
[2017-10-13] MEDS: METHADONE 40 MG TABLET.SOL PO SCH (09:22)
[2017-10-13] MEDS: PANTOPRAZOLE 40 MG IV IVPush SCH (09:22)
[2017-10-13] MEDS: SODIUM CHLORIDE 0.9% 1,000 ML IV SCH (10:00)
[2017-10-13] MEDS: NICOTINE 14MG/24 HR PATCH.TD24 TD SCH (11:20)
[2017-10-13] MEDS: LEVOFLOXACIN/PMX 500MG/100ML 100 ML IV SCH (11:20)
[2017-10-13 14:25] VITALS: BP 134/76
[2017-10-13 21:01] VITALS: BP 126/79
[2017-10-14] MEDS: HYDROcodone/APAP 5/325 TABLET PO PRN ×4 (02:03→23:23)
[2017-10-14] MEDS: ALBUTEROL/IPRATROPIUM 2.5MG/0.5MG, 3 ML NPPB SCH ×4 (02:15→21:20)
[2017-10-14 03:24] VITALS: BP 127/75
[2017-10-14] MEDS ORDERED: OMNIPAQUE 350 MG/ML, 100ML BOTTLE ONE (04:07)
[2017-10-14] MEDS: ENOXAPARIN 40 MG/0.4 ML SQ SCH (05:18)
[2017-10-14] MEDS: methylPREDNISolone SOD SUCC 125 MG/2 ML IVPush SCH ×4 (05:18→23:23)
[2017-10-14] MEDS: morphine SULFATE 10 MG/ML, 1ML IVPush PRN (05:18)
[2017-10-14 07:24] VITALS: BP 123/67
[2017-10-14] MEDS: GUAIFENESIN ER 600 MG TABLET PO SCH ×2 (09:00→21:01)
[2017-10-14] MEDS: POLYETHYLENE GLYCOL 17 GM PACKET PO SCH (09:00)
[2017-10-14] MEDS: METHADONE 40 MG TABLET.SOL PO SCH (09:17)
[2017-10-14] MEDS: PANTOPRAZOLE 40 MG IV IVPush SCH (09:18)
[2017-10-14] MEDS: LEVOFLOXACIN/PMX 500MG/100ML 100 ML IV SCH (11:30)
[2017-10-14] MEDS: NICOTINE 14MG/24 HR PATCH.TD24 TD SCH (11:30)
[2017-10-14 13:33] VITALS: BP 115/72
[2017-10-14 18:53] VITALS: BP 119/76
[2017-10-15] MEDS: morphine SULFATE 10 MG/ML, 1ML IVPush PRN ×2 (00:17→08:43)
[2017-10-15 01:23] VITALS: BP 132/78
[2017-10-15] MEDS: ALBUTEROL/IPRATROPIUM 2.5MG/0.5MG, 3 ML NPPB SCH ×4 (03:45→21:15)
[2017-10-15] MEDS: HYDROcodone/APAP 5/325 TABLET PO PRN ×3 (05:35→21:00)
[2017-10-15] MEDS: ENOXAPARIN 40 MG/0.4 ML SQ SCH (05:35)
[2017-10-15] MEDS: methylPREDNISolone SOD SUCC 125 MG/2 ML IVPush SCH ×3 (05:35→17:27)
[2017-10-15] MEDS: PANTOPRAZOLE 40 MG IV IVPush SCH (08:44)
[2017-10-15] MEDS: METHADONE 40 MG TABLET.SOL PO SCH (08:44)
[2017-10-15] MEDS: POLYETHYLENE GLYCOL 17 GM PACKET PO SCH (08:44)
[2017-10-15] MEDS: GUAIFENESIN ER 600 MG TABLET PO SCH ×2 (08:45→21:00)
[2017-10-15 08:58] VITALS: BP 137/75
[2017-10-15] MEDS: LEVOFLOXACIN/PMX 500MG/100ML 100 ML IV SCH (11:26)
[2017-10-15] MEDS: NICOTINE 14MG/24 HR PATCH.TD24 TD SCH (11:27)
[2017-10-15 15:10] VITALS: BP 128/72
[2017-10-15 20:12] VITALS: BP 139/79
[2017-10-16] MEDS: methylPREDNISolone SOD SUCC 125 MG/2 ML IVPush SCH ×5 (00:03→23:33)
[2017-10-16] MEDS: HYDROcodone/APAP 5/325 TABLET PO PRN ×5 (01:41→20:33)
[2017-10-16 01:49] VITALS: BP_SYST 121; BP_SYST 128; BP_DIAS 77; BP_DIAS 79
[2017-10-16] MEDS: ALBUTEROL/IPRATROPIUM 2.5MG/0.5MG, 3 ML NPPB SCH ×4 (03:00→21:00)
[2017-10-16] MEDS: ENOXAPARIN 40 MG/0.4 ML SQ SCH (05:44)
[2017-10-16 06:53] VITALS: BP 140/87
[2017-10-16] MEDS: POLYETHYLENE GLYCOL 17 GM PACKET PO SCH (08:03)
[2017-10-16] MEDS: GUAIFENESIN ER 600 MG TABLET PO SCH ×2 (08:03→20:33)
[2017-10-16] MEDS: PANTOPRAZOLE 40 MG IV IVPush SCH (08:03)
[2017-10-16] MEDS: METHADONE 40 MG TABLET.SOL PO SCH (08:04)
[2017-10-16] MEDS: LEVOFLOXACIN/PMX 500MG/100ML 100 ML IV SCH (11:33)
[2017-10-16] MEDS: NICOTINE 14MG/24 HR PATCH.TD24 TD SCH (11:33)
[2017-10-16 12:06] VITALS: BP 129/67
[2017-10-16 19:25] VITALS: BP 133/78
[2017-10-16] MEDS: DIPHENHYDRAMINE 50 MG CAPSULE PO PRN (23:33)
[2017-10-17 01:11] VITALS: BP 140/77
[2017-10-17] MEDS: ALBUTEROL/IPRATROPIUM 2.5MG/0.5MG, 3 ML NPPB SCH ×3 (02:24→18:30)
[2017-10-17] MEDS: HYDROcodone/APAP 5/325 TABLET PO PRN ×4 (03:46→19:40)
[2017-10-17] MEDS: methylPREDNISolone SOD SUCC 125 MG/2 ML IVPush SCH ×3 (05:12→18:18)
[2017-10-17] MEDS: ENOXAPARIN 40 MG/0.4 ML SQ SCH (05:12)
[2017-10-17 06:53] VITALS: BP 137/70
[2017-10-17] MEDS: PANTOPRAZOLE 40 MG IV IVPush SCH (07:59)
[2017-10-17] MEDS: GUAIFENESIN ER 600 MG TABLET PO SCH ×2 (07:59→19:40)
[2017-10-17] MEDS: METHADONE 40 MG TABLET.SOL PO SCH (07:59)
[2017-10-17] MEDS: POLYETHYLENE GLYCOL 17 GM PACKET PO SCH (08:07)
[2017-10-17] MEDS: NICOTINE 14MG/24 HR PATCH.TD24 TD SCH (11:33)
[2017-10-17] MEDS: LEVOFLOXACIN/PMX 500MG/100ML 100 ML IV SCH (11:34)
[2017-10-17 13:12] VITALS: BP 131/75
[2017-10-17 18:57] VITALS: BP 133/73
[2017-10-18] MEDS: methylPREDNISolone SOD SUCC 125 MG/2 ML IVPush SCH ×3 (00:06→13:04)
[2017-10-18] MEDS: HYDROcodone/APAP 5/325 TABLET PO PRN ×5 (00:07→16:34)
[2017-10-18] MEDS: DIPHENHYDRAMINE 50 MG CAPSULE PO PRN (00:07)
[2017-10-18 01:41] VITALS: BP 140/85
[2017-10-18] MEDS: ALBUTEROL/IPRATROPIUM 2.5MG/0.5MG, 3 ML NPPB SCH ×2 (05:00→09:00)
[2017-10-18] MEDS: ENOXAPARIN 40 MG/0.4 ML SQ SCH (05:58)
[2017-10-18 07:36] VITALS: BP 135/78
[2017-10-18] MEDS: POLYETHYLENE GLYCOL 17 GM PACKET PO SCH (09:00)
[2017-10-18] MEDS: METHADONE 40 MG TABLET.SOL PO SCH (09:18)
[2017-10-18] MEDS: GUAIFENESIN ER 600 MG TABLET PO SCH (09:19)
[2017-10-18] MEDS: PANTOPRAZOLE 40 MG IV IVPush SCH (09:19)
[2017-10-18] MEDS: LEVOFLOXACIN/PMX 500MG/100ML 100 ML IV SCH (13:04)
[2017-10-18] MEDS: NICOTINE 14MG/24 HR PATCH.TD24 TD SCH (13:04)
[2017-10-18] MEDS ORDERED: FLUT1BLS INH (13:20)
[2017-10-18] MEDS ORDERED: PRED10TA14 PO (13:20)
[2017-10-18] MEDS ORDERED: NICO-486 TD (13:20)
[2017-10-18] MEDS ORDERED: ASPI-515 PO (13:26)
[2017-10-18] MEDS ORDERED: SIMV20TA PO (13:26)
[2017-10-18 13:47] VITALS: BP 125/70
== END 2017-10-18 17:31 | DRG 480 ==
LOC: ED 07:13 → EDIP 07:34 → 4NOR 10:17
PROVIDERS: ADMIT Internal Medicine; ATTEND Internal Medicine
PROC: 0QS706Z Reposition Left Upper Femur with Intramedullary Internal Fixation Device, Open Approach (ICD-10-PCS; principal; 2017-10-11 15:00)
DX: S72.145A Nondisplaced intertrochanteric fracture of left femur, initial encounter for closed fracture (principal); J96.20 Acute and chronic respiratory failure, unspecified whether with hypoxia or hypercapnia; I50.30 Unspecified diastolic (congestive) heart failure; J44.1 Chronic obstructive pulmonary disease with (acute) exacerbation; S72.25XA Nondisplaced subtrochanteric fracture of left femur, initial encounter for closed fracture; W01.0XXA Fall on same level from slipping, tripping and stumbling without subsequent striking against object, initial encounter; K59.00 Constipation, unspecified; Z66 Do not resuscitate; F17.200 Nicotine dependence, unspecified, uncomplicated; F32.9 Major depressive disorder, single episode, unspecified; B19.20 Unspecified viral hepatitis C without hepatic coma; F41.9 Anxiety disorder, unspecified; F15.90 Other stimulant use, unspecified, uncomplicated; F19.11 Other psychoactive substance abuse, in remission; Z99.81 Dependence on supplemental oxygen; Y93.89 Activity, other specified; Y92.89 Other specified places as the place of occurrence of the external cause; Y99.8 Other external cause status; Z93.1 Gastrostomy status; Z86.14 Personal history of Methicillin resistant Staphylococcus aureus infection; Z86.73 Personal history of transient ischemic attack (TIA), and cerebral infarction without residual deficits
CPT/HCPCS: 36415; 36600; 70450; 71045; 71275; 72125; 72128; 72131; 76000; 80048; 80053; 82550; 82800; 82803; 83735; 84100; 84439; 84443; 84484; 85025; 85610; 85730; 93005; 94640; 96361; 96374; 96375; C1713; J0171; J0690; J1650; J1956; J2704; J3010; J3490; J7613; J7620; Q9967; C9113; J0330; J1630; J1940; J2060; J2270; J2930; J7030

== ENCOUNTER 2018-05-02 05:40 | Emergency (ER) | payer MEDICARE, MEDICAID ==
[~2018-05-02] VITALS: Ht 182.9 cm; Wt 84.0 kg
[~2018-05-02 05:40] MED LIST changes: +ALPR-475 PO; +ASPI-515 PO; +METH-356 PO; +NICO-486 TD; +SIMV20TA PO
[2018-05-02 05:47] VITALS: BP 112/57
[2018-05-02] MEDS ORDERED: SODIUM CHLORIDE FLUSH 10ML SYR IVF ONE (06:30)
[2018-05-02] MEDS ORDERED: SODIUM CHLORIDE 0.9% 1,000ML IVBOLUS ONE (06:30)
[2018-05-02] MEDS ORDERED: ONDANSETRON 2MG/ML, 2ML IVPush ONE (06:30)
[2018-05-02] MEDS ORDERED: MORPHINE SULFATE 4 MG/ML, 1ML ONE ×2 (07:03→07:30)
[2018-05-02] MEDS ORDERED: ONDANSETRON 2MG/ML, 2ML ONE (07:03)
[2018-05-02] MEDS: MORPHINE SULFATE 4 MG/ML, 1ML IVPush PRN ×2 (07:05→07:34)
[2018-05-02 07:15] LABS: BASOPHILS # (AUTO) 0.01 x10^3/uL (0-0.1); BASOPHILS % (AUTO) 0 % (0-1); EOSINOPHILS # (AUTO) 0.14 x10^3/uL (0-0.4); EOSINOPHILS % (AUTO) 2 % (1-7); LYMPHOCYTES # (AUTO) 1.36 x10^3/uL (1-3.4); LYMPHOCYTES % (AUTO) 23 % (22-44); MD NO; MEAN CORPUSCULAR HGB CONC 33.3 g/dL (33.2-36.2); MEAN CORPUSCULAR VOLUME 87.1 fL (81-97); MEAN PLATELET VOLUME 7.8 fL (7.4-10.4); MONOCYTES # (AUTO) 0.55 x10^3/uL (0.2-0.8); MONOCYTES % (AUTO) 9 % (2-9); NEUTROPHILS # (AUTO) 3.91 x10^3/uL (1.8-6.8); NEUTROPHILS % (AUTO) 65 % (42-75); PLATELET COUNT 160 x10^3/uL (130-400); RED BLOOD COUNT 4.24 x10^6/uL (4.38-5.82); RED CELL DISTRIBUTION WIDTH 15.4 % (9.4-14.8)
[2018-05-02 07:18] LABS: ALANINE AMINOTRANSFERASE 22 U/L (12-78); ANION GAP 9 mmol/L (5-15); CALCIUM 8.8 mg/dL (8.5-10.1); CHLORIDE 107 mmol/L (98-107)
[2018-05-02 07:21] LABS: ALKALINE PHOSPHATASE 89 U/L (45-117); BILIRUBIN,TOTAL 0.6 mg/dL (0.2-1.0); TOTAL PROTEIN 7.1 g/dL (6.4-8.2)
[2018-05-02 07:23] LABS: MICROSCOPIC NOT IND
[2018-05-02 07:26] LABS: CULTURE INDICATED? NO
[2018-05-02] MEDS ORDERED: METHADONE 40 MG TABLET.SOL PO ONE (07:30)
[2018-05-02] MEDS ORDERED: OMNIPAQUE 350 MG/ML, 100ML BOTTLE ONE (08:33)
== END 2018-05-02 10:28 | disposition home or self-care (01) ==
LOC: ED 07:17
DX: R10.84 Generalized abdominal pain (principal); J44.9 Chronic obstructive pulmonary disease, unspecified; Z86.19 Personal history of other infectious and parasitic diseases; Z87.891 Personal history of nicotine dependence
CPT/HCPCS: 36415; 74177; 80053; 81003; 83605; 83690; 85025; 87040; 93005; 96374; 96375; 99285; J2405; J7030; Q9967

== ENCOUNTER 2018-05-21 05:35 | Emergency (ER) | payer MEDICARE, MEDICAID ==
[~2018-05-21] VITALS: Ht 182.9 cm; Wt 85.1 kg
[~2018-05-21 05:35] MED LIST changes: -CLON-365 PO; +CLON1TAB4 PO; -IPRA3AMP NPPB; +IPRA3AMP30 NPPB
[2018-05-21] MEDS ORDERED: SODIUM CHLORIDE FLUSH 10ML SYR IVF ONE (06:00)
[2018-05-21] MEDS ORDERED: HYDR-3240 PO (06:24)
[2018-05-21] MEDS ORDERED: FURO-92 PO (06:24)
[2018-05-21] MEDS ORDERED: CALC1TAB90 PO (06:24)
[2018-05-21] MEDS ORDERED: TAMS-11 PO (06:24)
[2018-05-21] MEDS ORDERED: TRAZ-137 PO (06:24)
[2018-05-21] MEDS ORDERED: ESCI20TA10 PO (06:24)
[2018-05-21] MEDS ORDERED: METH40TA3 PO (06:24)
[2018-05-21] MEDS ORDERED: CHOL100012 PO (06:24)
[2018-05-21 06:32] LABS: BASOPHILS # (AUTO) 0.03 x10^3/uL (0-0.1); BASOPHILS % (AUTO) 1 % (0-1); EOSINOPHILS # (AUTO) 0.21 x10^3/uL (0-0.4); EOSINOPHILS % (AUTO) 4 % (1-7); LYMPHOCYTES # (AUTO) 1.24 x10^3/uL (1-3.4); LYMPHOCYTES % (AUTO) 24 % (22-44); MD NO; MEAN CORPUSCULAR HEMOGLOBIN 29.9 pg (27.5-34.5); MEAN CORPUSCULAR HGB CONC 33.7 g/dL (33.2-36.2); MEAN CORPUSCULAR VOLUME 88.6 fL (81-97); MONOCYTES # (AUTO) 0.48 x10^3/uL (0.2-0.8); MONOCYTES % (AUTO) 9 % (2-9); NEUTROPHILS % (AUTO) 62 % (42-75); PLATELET COUNT 189 x10^3/uL (130-400); RED BLOOD COUNT 4.14 x10^6/uL (4.38-5.82); RED CELL DISTRIBUTION WIDTH 15.4 % (9.4-14.8)
[2018-05-21 06:39] LABS: ALBUMIN 4.1 g/dL (3.4-5.0); ANION GAP 6 mmol/L (5-15); CALCIUM 9.2 mg/dL (8.5-10.1); CHLORIDE 103 mmol/L (98-107)
[2018-05-21 06:42] LABS: ALANINE AMINOTRANSFERASE 23 U/L (12-78); ALKALINE PHOSPHATASE 81 U/L (45-117); BILIRUBIN,TOTAL 0.7 mg/dL (0.2-1.0); CREATININE 1.38 mg/dL (0.7-1.3); TOTAL PROTEIN 7.6 g/dL (6.4-8.2)
[2018-05-21 08:13] LABS: MICROSCOPIC NOT IND
[2018-05-21 08:34] LABS: CULTURE INDICATED? NO
[2018-05-21] MEDS ORDERED: DICYCLOMINE 10 MG CAPSULE ONE (08:57)
[2018-05-21] MEDS ORDERED: DICYCLOMINE 10 MG CAPSULE PO ONE (09:00)
[2018-05-21 09:12] VITALS: BP 117/78
== END 2018-05-21 11:09 | disposition home or self-care (01) ==
LOC: ED 10:23
DX: R10.84 Generalized abdominal pain (principal); Z86.19 Personal history of other infectious and parasitic diseases; J44.9 Chronic obstructive pulmonary disease, unspecified
CPT/HCPCS: 36415; 74022; 80053; 81003; 83690; 85025; 93005; 99285